=== PATIENT | male | born 1980 | race Caucasian/White ===

== ENCOUNTER 2020-03-27 21:37 | Emergency (ER) | payer BC ==
--- NOTE | 2020-03-27 21:44 | ERPHSYRPT ---
- History of Present Illness Time Seen by Provider: 03/27/20 21:44 Source: patient Exam Limitations: no limitations Physician History: This is a 40-year-old white male who has chronic low back issues. He did not fall or have acute traumatic injury. At approximately 1230 he noticed his back tightening up and over the course of the last several hours he has severe muscle spasms in his lower back. He has had this in the past on occasion. He has no loss of bowel or bladder function. He has no urinary symptoms. Patient is not on any narcotic pain medicine or muscle relaxants. He is not on any anti- inflammatory medication. Timing/Duration: today Method of Injury: other (No injury) Quality: radiating (Right buttock and posterior thigh), sharp, stabbing Back Pain Location: paraspinous muscles Back Pain Radiation: buttocks Severity of Pain-Max: moderate Severity of Pain-Current: moderate Associated Symptoms: lower back pain, muscle spasms, No urinary incontinence, No loss of bowel control, No problems urinating, No numbness in legs/feet, No weakness, No tingling in legs/feet Previous symptoms: same symptoms as today Allergies/Adverse Reactions: No Known Drug Allergies Allergy (Unverified 03/27/20 22:15) Home Medications: No Reportable Medications [No Reported Medications] 03/27/20 [History] Travel Risk - International Travel Have you traveled outside of the country in past 3 weeks: No - Coronavirus Screening Are you exhibiting any of the following symptoms?: No Close contact with a COVID-19 positive Pt in past 14-21 Days: No - Review of Systems Constitutional: No Symptoms Eyes: No Symptoms Ears, Nose, & Throat: No Symptoms Respiratory: No Symptoms Cardiac: No Symptoms Abdominal/Gastrointestinal: No Symptoms Genitourinary Symptoms: No Symptoms Musculoskeletal: Back Pain Skin: No Symptoms Neurological: No Symptoms Psychological: No Symptoms Endocrine: No Symptoms Hematologic/Lymphatic: No Symptoms Immunological/Allergic: No Symptoms All Other Systems: Reviewed and Negative - Past Medical History Pertinent Past Medical History: No Neurological History: No Pertinent History ENT History: No Pertinent History Cardiac History: No Pertinent History Respiratory History: No Pertinent History Endocrine Medical History: No Pertinent History History: No Pertinent History Psycho-Social History: No Pertinent History Male Reproductive Disorders: No Pertinent History - Past Surgical History Past Surgical History: No Neuro Surgical History: No Pertinent History Cardiac: No Pertinent History Respiratory: No Pertinent History Gastrointestinal: No Pertinent History Genitourinary: No Pertinent History Musculoskeletal: No Pertinent History Male Surgical History: No Pertinent History - Nursing Vital Signs Nursing Vital Signs: Initial Vital Signs Temperature 96.7 F 03/27/20 21:38 Pulse Rate 77 03/27/20 21:38 Respiratory Rate 16 03/27/20 21:38 Blood Pressure 127/75 03/27/20 21:38 O2 Sat by Pulse Oximetry 97 03/27/20 21:38 Pain Scale Pain Intensity [Right Lower 6 Back] Pain Intensity 6 - Physical Exam General Appearance: mild distress, alert, anxiety Eye Exam: PERRL/EOMI, eyes nml inspection Ears, Nose, Throat Exam: normal ENT inspection, moist mucous membranes Neck Exam: normal inspection, non-tender, supple, full range of motion Respiratory Exam: airway intact, No chest tenderness, No respiratory distress Gastrointestinal Exam: No tenderness Rectal Exam: not done Back Exam: normal inspection, decreased range of motion, muscle spasm, No vertebral tenderness Extremity Exam: normal inspection, normal range of motion, pelvis stable Skin Exam: normal color, warm, dry Lymphatic Exam: No adenopathy SpO2 Interpretation: normal O2 Delivery: Room Air - Course Nursing assessment & vital signs reviewed: Yes - Progress Progress: improved, pain not gone completely Counseled pt/family regarding: diagnosis, need for follow-up, rad results - Departure Departure Disposition: Home Clinical Impression: Acute exacerbation of chronic low back pain, Sciatica Condition: Stable Critical Care Time: No Additional Instructions: Follow-up with your primary care physician for further management of your back pain.
[2020-03-27] MEDS ORDERED: Hydromorphone 1 mg/ml Injection IM ONE (22:28)
[2020-03-27] MEDS ORDERED: Phenergan 25 MG INJ IM ONE (22:28)
[2020-03-27] MEDS ORDERED: Ativan 2 MG/1 ML VIAL IM ONE ×2 (22:29→23:43)
[2020-03-27] MEDS ORDERED: solu-MEDROL 125 MG IM ONE (22:29)
[2020-03-27] MEDS ORDERED: Phenergan 25 MG INJ ONE (22:42)
[2020-03-27] MEDS ORDERED: Ativan 2 MG/1 ML VIAL ONE ×2 (22:43→23:47)
[2020-03-27] MEDS ORDERED: Hydromorphone 1 mg/ml Injection ONE (22:43)
[2020-03-27] MEDS ORDERED: solu-MEDROL 125 MG ONE (22:43)
[2020-03-27] MEDS ORDERED: PERCOCET TABLET 5/325MG PO STA (23:04)
[2020-03-27] MEDS ORDERED: PERCOCET TABLET 5/325MG ONE (23:07)
[2020-03-28 00:43] VITALS: BP 121/72; PULSE 76; O2SAT 97
== END 2020-03-28 00:42 | disposition home or self-care (01) ==
LOC: ED 21:37
DX: M54.40 Lumbago with sciatica, unspecified side (principal)
CPT/HCPCS: 96372; 99284; J1170; J2060; J2550; J2930; A9270-GY